=== PATIENT | male | born 1985 | race Caucasian/White ===

== ENCOUNTER 2018-07-19 17:18 | Emergency (ER) | payer SELFPAY ==
--- NOTE | 2018-07-19 20:07 | RAD REPORT ---
EXAM DESCRIPTION: RAD - Foot Left 3 View - 07/19/2018 7:59 pm CLINICAL HISTORY: PAIN COMPARISON: No comparisons FINDINGS: No acute fracture or dislocation seen. Small calcaneal spurs are seen.
--- NOTE | 2018-07-19 20:09 | ER ---
Nurse's Notes [facility] Name: Elias Evans III Age: 32 yrs Sex: Male : 1985 Arrival Date: 07/19/2018 Time: 17:21 Bed 19 Private MD: Out, [facility] Diagnosis: Pain in left foot Presentation: 07/19 17:32 Presenting complaint: Patient states: " My left foot has been bothering me for about a ph week. It's worse after I am up walking on it." Reports pain in top of L foot. Denies injury, redness or swelling. Transition of care: patient was not received from another setting of care. Onset of symptoms was July 19, 2018. Risk Assessment: Do you want to hurt yourself or someone else? Patient reports no desire to harm self or others. Initial Sepsis Screen: Does the patient meet any 2 criteria? No. Patient's initial sepsis screen is negative. Does the patient have a suspected source of infection? No. Patient's initial sepsis screen is negative. Care prior to arrival: None. 17:32 Method Of Arrival: Ambulatory ph 17:32 Acuity: JOHNNA 4 ph Historical: - Allergies: 17:34 No Known Allergies; ph - Home Meds: 17:34 None [Active]; ph - PMHx: 17:34 None; ph - PSHx: 17:34 Tonsillectomy; ph - Immunization history:: Adult Immunizations up to date. - Social history:: Smoking status: Patient uses tobacco products, smokes one pack cigarettes per day. - Ebola Screening: : No symptoms or risks identified at this time. Screenin:40 Abuse screen: Denies threats or abuse. Denies injuries from another. Nutritional lp1 screening: No deficits noted. Tuberculosis screening: No symptoms or risk factors identified. Fall Risk None identified. Assessment: 19:39 General: Appears in no apparent distress. Behavior is appropriate for age. Pain: lp1 Complains of pain in dorsum of left foot Pain currently is 6 out of 10 on a pain scale. Quality of pain is described as aching, Aggravated by weight bearing. Neuro: Level of Consciousness is awake, alert, obeys commands. Cardiovascular: Patient's skin is warm and dry. Respiratory: Respiratory effort is even, unlabored. GI: No signs and/or symptoms were reported involving the gastrointestinal system. : No signs and/or symptoms were reported regarding the genitourinary system. EENT: No signs and/or symptoms were reported regarding the EENT system. Derm: No signs and/or symptoms reported regarding the dermatologic system. Musculoskeletal: Circulation, motion, and sensation intact. Reports pain in dorsum of left foot since 1 week ago. 20:20 Reassessment: Informed patient/family of discharge instructions. Nursing order for Gama bs1 wrap. Patient requested to keep own Gama wrap. Vital Signs: 17:33 BP 137 / 78; Pulse 68; Resp 18; Temp 97.9; Pulse Ox 98% on R/A; Weight 163.29 kg; ph Height 6 ft. 7 in. (200.66 cm); Pain 4/10; 17:33 Body Mass Index 40.56 (163.29 kg, 200.66 cm) ph ED Course: 17:21 Patient arrived in ED. sb2 17:22 Out, of Town is Private Physician. sb2 17:33 Triage completed. ph 17:34 Arm band placed on. ph 19:18 Kizzy Nguyen FNP-C is PHCP. kb 19:18 Nicholas Roger MD is Attending Physician. kb 19:39 Lorenza Diaz, JUNE is Primary Nurse. lp1 19:40 Patient has correct armband on for positive identification. lp1 19:41 Patient did not have IV access during this emergency room visit. lp1 19:58 X-ray completed. Portable x-ray completed in exam room. Patient tolerated procedure la2 well. 19:59 Foot Left 3 View XRAY In Process Unspecified. EDMS 20:21 No provider procedures requiring assistance completed. Patient did not have IV access bs1 during this emergency room visit. Administered Medications: No medications were administered Outcome: 20:09 Discharge ordered by . kb 20:22 Discharged to home ambulatory, with family. bs1 20:22 Condition: stable 20:22 Discharge instructions given to patient, Instructed on discharge instructions, follow up and referral plans. Demonstrated understanding of instructions, follow-up care. 20:23 Patient left the ED. bs1 Signatures: Dispatcher [employer] EDMS Kizzy Nguyen FNP-C FNP-Lorenza Stahl RN RN lp1 Rachell Dooley RN RN EdenGregoria carl Brittany, RN RN bs1 Matilda Chanel sb2 Corrections: (The following items were deleted from the chart) 17:32 17:31 General: Appears ph ph
--- NOTE | 2018-07-19 20:09 | EDPHYS ---
Physician Documentation [facility] Name: Elias Evans III Age: 32 yrs Sex: Male : 1985 Arrival Date: 07/19/2018 Time: 17:21 Bed 19 Private MD: Out, [facility] ED Physician Nicholas Roger HPI: 07/19 20:07 This 32 yrs old Male presents to ER via Ambulatory with complaints of Foot kb Pain. 20:07 The patient presents with pain, that is acute. The complaints affect the left foot. kb Context: The problem was sustained at an unknown location, resulted from an unknown cause, Mechanism of Injury: Unknown the patient can fully bear weight, the patient is able to ambulate. Onset: The symptoms/episode began/occurred 1 week(s) ago. Modifying factors: The symptoms are alleviated by nothing, the symptoms are aggravated by weight bearing. Associated signs and symptoms: The patient has no apparent associated signs or symptoms. Severity of symptoms: At their worst the symptoms were mild, in the emergency department the symptoms are unchanged. The patient has not experienced similar symptoms in the past. The patient has not recently seen a physician. Pt reports pain to left foot when walking. Denies injury or trauma. Historical: - Allergies: 17:34 No Known Allergies; ph - Home Meds: 17:34 None [Active]; ph - PMHx: 17:34 None; ph - PSHx: 17:34 Tonsillectomy; ph - Immunization history:: Adult Immunizations up to date. - Social history:: Smoking status: Patient uses tobacco products, smokes one pack cigarettes per day. - Ebola Screening: : No symptoms or risks identified at this time. ROS: 20:05 Constitutional: Negative for fever, chills, and weight loss, Cardiovascular: Negative kb for chest pain, palpitations, and edema, Respiratory: Negative for shortness of breath, cough, wheezing, and pleuritic chest pain, Abdomen/GI: Negative for abdominal pain, nausea, vomiting, diarrhea, and constipation, Skin: Negative for injury, rash, and discoloration, Neuro: Negative for headache, weakness, numbness, tingling, and seizure. 20:05 MS/extremity: Positive for injury or acute deformity, pain, tenderness, of the dorsum of left foot. Exam: 20:05 Constitutional: This is a well developed, well nourished patient who is awake, alert, kb and in no acute distress. Head/Face: Normocephalic, atraumatic. Neck: Trachea midline, no thyromegaly or masses palpated, and no cervical lymphadenopathy. Supple, full range of motion without nuchal rigidity, or vertebral point tenderness. No Meningismus. Chest/axilla: Normal chest wall appearance and motion. Nontender with no deformity. No lesions are appreciated. Cardiovascular: Regular rate and rhythm with a normal S1 and S2. No gallops, murmurs, or rubs. Normal PMI, no JVD. No pulse deficits. Respiratory: Lungs have equal breath sounds bilaterally, clear to auscultation and percussion. No rales, rhonchi or wheezes noted. No increased work of breathing, no retractions or nasal flaring. Abdomen/GI: Soft, non-tender, with normal bowel sounds. No distension or tympany. No guarding or rebound. No evidence of tenderness throughout. Skin: Warm, dry with normal turgor. Normal color with no rashes, no lesions, and no evidence of cellulitis. Neuro: Awake and alert, GCS 15, oriented to person, place, time, and situation. Cranial nerves II-XII grossly intact. Motor strength 5/5 in all extremities. Sensory grossly intact. Cerebellar exam normal. Normal gait. 20:05 Musculoskeletal/extremity: Extremities: grossly normal except: noted in the dorsum of left foot: pain, tenderness, ROM: intact in all extremities, Circulation is intact in all extremities. Sensation intact. Weight bearing: able to fully bear weight. Vital Signs: 17:33 BP 137 / 78; Pulse 68; Resp 18; Temp 97.9; Pulse Ox 98% on R/A; Weight 163.29 kg; ph Height 6 ft. 7 in. (200.66 cm); Pain 4/10; 17:33 Body Mass Index 40.56 (163.29 kg, 200.66 cm) ph MDM: 19:18 Patient medically screened. kb 20:05 Data reviewed: vital signs, nurses notes. Data interpreted: Pulse oximetry: on room air kb is 98 %. Interpretation: normal. 20:08 Counseling: I had a detailed discussion with the patient and/or guardian regarding: the kb historical points, exam findings, and any diagnostic results supporting the discharge/admit diagnosis, radiology results, the need for outpatient follow up, a orthopedic surgeon, to return to the emergency department if symptoms worsen or persist or if there are any questions or concerns that arise at home. 07/19 19:27 Order name: Foot Left 3 View XRAY; Complete Time: 20:08 kb 07/19 20:09 Order name: Gama Wrap; Complete Time: 20:20 kb Administered Medications: No medications were administered Disposition: 21:06 Co-signature as Attending Physician, Nicholas Roger MD. rn Disposition: 07/19/18 20:09 Discharged to Home. Impression: Pain in left foot. - Condition is Stable. - Discharge Instructions: Foot Sprain, Musculoskeletal Pain. - Medication Reconciliation Form, Thank You Letter, Antibiotic Education, Prescription Opioid Use form. - Follow up: Emergency Department; When: As needed; Reason: Worsening of condition. Follow up: Private Physician; When: 2 - 3 days; Reason: Recheck today's complaints, Continuance of care, Re-evaluation by your physician. Signatures: Dispatcher [employer] [facility] Kizzy Nguyen, SPRINKLER DRIVER-C SPRINKLER DRIVER-Ckb Nicholas Roger MD MD rn Pena, Laura, RN RN lp1 Rachell Dooley, RN RN Cassandra Rangel, RN RN bs1 Corrections: (The following items were deleted from the chart) 19:54 19:26 Foot Right 3 View+RAD.RAD.BRZ ordered. [facility] 20:23 20:09 07/19/2018 20:09 Discharged to Home. Impression: Pain in left foot. Condition is bs1 Stable. Forms are Medication Reconciliation Form, Thank You Letter, Antibiotic Education, Prescription Opioid Use. Follow up: Emergency Department; When: As needed; Reason: Worsening of condition. Follow up: Private Physician; When: 2 - 3 days; Reason: Recheck today's complaints, Continuance of care, Re-evaluation by your physician. kb
== END 2018-07-19 20:23 | disposition home or self-care (01) ==
LOC: ER 17:18
DX: M79.672 Pain in left foot (principal); F17.210 Nicotine dependence, cigarettes, uncomplicated
CPT/HCPCS: 99283